=== PATIENT | male | born 1990 | race African-American/Black ===

== ENCOUNTER 2020-05-09 11:27 | Outpatient (REF) | payer OTHER, SELFPAY | END 2020-05-09 11:28 | disposition home or self-care (01) | LOC: HO.LAB 11:27 | PROVIDERS: Visit Provider Internal Medicine | DX: Z20.828 Contact with and (suspected) exposure to other viral communicable diseases (principal) | CPT/HCPCS: 87635 ==

== ENCOUNTER 2025-02-02 10:41 | Outpatient (REF) | payer OTHER, SELFPAY ==
--- NOTE | ~2025-02-02 | US_ITS ---
EXAMINATION: US ABDOMEN HISTORY: GERD TECHNIQUE: Real-time grayscale ultrasound imaging of the abdomen was performed and images were reviewed. COMPARISON: There are no prior studies available for comparison. FINDINGS: Liver: The right lobe of the liver measures 17.4 cm in size. The left lobe of the liver measures 10.7 cm in size. The liver demonstrates increased echotexture, consistent with steatosis. No focal mass or intrahepatic biliary ductal dilatation is identified. There is normal hepatopedal flow in the portal vein. Gallbladder and biliary tree: The gallbladder is unremarkable, without evidence of calculi, wall thickening, or pericholecystic fluid. There is no sonographic Khan sign. The common bile duct is normal in caliber measuring 4 mm. Kidneys: The right kidney measures 13.1 cm in length. The left kidney measures 11.8 cm in length. The kidneys are unremarkable, without evidence of masses, hydronephrosis, or calculi. Pancreas: The pancreatic head, neck, and body are unremarkable. The pancreatic tail is obscured by bowel gas. Spleen: The spleen is normal in size and contour, measuring 9.5 cm in length. Abdominal aorta and inferior vena cava: The visualized portions of the abdominal aorta and inferior vena cava are normal in caliber. There is no free fluid in the abdomen. US/US abdomen complete IMPRESSION: Mild hepatomegaly. Hepatic steatosis. Electronically signed by: Malick Chacon MD 02/02/2025 11:34 AM EDT
--- OUTSIDE RECORDS SUMMARY | 2025-02-02 11:19 | XMS_ITS | Clinical Summary ---
Author Organization [facility] Address [address] [place] [address] Care Team Providers Care Pipe Bending Machine Operator Name Role Phone Ace Scott MD Primary Care Provider [phone] Social History Tobacco Use Types Packs/Day Years [...] Vaccine (2023-2 5 season) 2024 Influenza Vaccine (#1) 2025 HIB Vaccines Aged Out No longer [...] and At-Risk Patients (6 to 49 Years) Aged Out No longer eligible b ased on patient's age to complete this topic RSV Immunization Patients Un kathryn 20 months Aged Out No longer eligible b ased on patient's age to complete this topic Varicella Vaccines Aged Out No longer eligible based on patient's age to complete this topic Care Teams Pipe Bending Machine Operator Relationship Specialty Start Date End Date Ace Scott MD [address] [place] [id number] PCP - General Internal Medicine 02/05/17
--- OUTSIDE RECORDS SUMMARY | 2025-02-02 11:19 | XMS_ITS | Clinical Summary ---
Author Organization [facility] Facility Address [address] [address] Care Team Providers Care Log Yard Derrick Operator Name Role Phone Mini Colin MD Primary Care Provider [phone] Allergies No known active allergies Medications No [...] of 2 - PCV) 2009 Influenza Vaccine (#1) 2025 Insurance [facility] Medicaid [facility] Medicaid Care Teams Log Yard Derrick Operator Relationship Specialty Start Date End Date Mini Colin MD [address] [place] [address] PCP - General Internal Medicine 11/14/20
--- OUTSIDE RECORDS SUMMARY | 2025-02-02 11:19 | XMS_ITS | Patient Health Record ---
Author Organization [facility] Address [address] [place] [address] Care Team Providers Care Lining Cleaner Name Role Phone Kitty Milan Primary Care Provider Unavailab Malick Hart Unavailable [phone] Allergies No Known Allergies Reason For Referral Referring Provider First Name Kitty Referring Provider Last Name Kayli Referring Provider Speciality Internal M edicine Referred Organization [facility] Referred Provider Malick Baldwin Referred Address [address],[place], [place],[address], Referred Provider Specialty Gastroentero logy General Notes Ivonne Hankins 2024 09:16:16 AM >requested referral from Dr. Lozano's office for visit with Dr. Baldwin on [phone], Ivonne Hankins 12/21/2024 01:45:52 PM >Has HPI [...] W/U Status Risk Notes Problem Epigastric pain (50011188) Epigastric pain (R10.13) Active confirmed Problem Constipation (K59.00) Active confirmed Problem Heartburn (79394317) Heartburn (R12) Active confirmed Problem Gastroesophageal reflux disease (996035800) GERD (gastroesophage al reflux disease) (K21.9) Active confirmed Vital Signs Temperature 98.6 degrees Fahrenheit 12/20/2024 Blood pressure diastolic 01 mm Hg 12/20/2024 Height 73 in 12/20/2024 Blood pressure systolic 001 mm Hg 12/20/2024 Weight 244 lbs 12/20/2024 BMI 32.19 kg/m2 12/20/2024 Procedures Procedure Date Ordered Date Performed Result Body Sit e UPPER GI ENDOSCOPY 12/20/2024 N/A Encounters Encounter Location Date Provider Diagnosis [facility] [address] [place] [address] 12/20/2024 Malick Baldwin GERD (gastroesophage al reflux [...] complete 12/20/2024 Next Appt Details Provider Name:Malick Baldwin , 02/26/2025 02:40:00 PM, [address] [place] [address] , [place], [place], [phone], Insurance Providers Payer Name Payer Address Payer Phone Subscriber Number Group Number Insured Name Patient Relationship to Insured Coverage Start Date Coverage End Date HEALTH PLANS [facility] [address] [place] [address] [id number] JOEL ROSS Self - patient is the insured Medical (General) History Medical History History ICD Code Denies ID,DM,CVA,Lung disease,renal dise ase Hospitalized in 2020 for abo ut 1 month for renal failure and seizures at [facility]. He describes a short course of dialysis. He reports this all resolved and has not been a medical issue for him since then. Surgical History Surgery Date(Month/Year) fatty tumor-- back of neck
== END 2025-02-02 10:42 | disposition home or self-care (01) ==
LOC: HO.US 10:41
PROVIDERS: PCP Internal Medicine; Visit Provider Internal Medicine
DX: K21.9 Gastro-esophageal reflux disease without esophagitis (principal); R10.13 Epigastric pain
CPT/HCPCS: 76700

== ENCOUNTER → 2025-02-02 11:08 | Outpatient (BNV) | payer OTHER, SELFPAY | PROVIDERS: PCP Internal Medicine; Visit Provider Radiology Diagnostic Radiology | DX: K76.0 Fatty (change of) liver, not elsewhere classified (principal) | CPT/HCPCS: 76700 ==

== ENCOUNTER 2025-02-26 13:28 | Day surgery (SDC) | payer OTHER, SELFPAY ==
--- OUTSIDE RECORDS SUMMARY | 2025-01-23 08:32 | XMS_ITS | Patient Health Record ---
Author Organization [facility] Address [address] [place] [address] Care Team Providers Care Sap Analyst Name Role Phone Kitty Milan Primary Care Provider Unavailab Malick Hart Unavailable [phone] Allergies No Known Allergies Reason For Referral Referring Provider First Name Kitty Referring Provider Last Name Kayli Referring Provider Speciality Internal M edicine Referred Organization [facility] Referred Provider Malick Baldwin Referred Address [address] [facility],[address],[place], [place],[address], Referred Provider Specialty Gastroentero logy General Notes Ivonne Hankins 2024 09:16:16 AM >requested referral from Dr. Lozano's office for visit with Dr. Baldwin on [phone], Ivonne Hankins 12/21/2024 01:45:52 PM >Has HPI insurance Referral Priority Routine Social History Tobacco Use: Social History Observation Description Date Details (start date - stop date) Current Smoker NA - NA Tobacco Control (Standard) Question Answer Notes Tobacco use: Current smoker AUDIT-C (Standard) Question Answer Notes Did you have a drink contain ing alcohol in the past year? Yes How often did you have a dri nk containing alcohol in the past year? Monthly or less (1 point) How many drinks did you have on a typical day when you were drinking in the past year? 1 or 2 drinks (0 point) How often did you have six o r more drinks on one occasion in the past year? Never (0 point) Points 1 Interpretation Negative Section Notes: Smokes cigs and marijuana, n o sig alcohol Problems Problem Type SNOMED Code ICD Code Onset Dates Problem Status W/U Status Risk Notes Problem Epigastric pain (94067138) Epigastric pain (R10.13) Active confirmed Problem Constipation (17037045) Constipation (K59.00) Active confirmed Problem Heartburn (14936308) Heartburn (R12) Active confirmed Problem GERD (gastroesophagea l reflux disease) (K21.9) Active confirmed Vital Signs Temperature 98.6 degrees Fahrenheit 12/20/2024 Blood pressure diastolic 01 mm Hg 12/20/2024 Height 73 in 12/20/2024 Blood pressure systolic 001 mm Hg 12/20/2024 Weight 244 lbs 12/20/2024 BMI 32.19 kg/m2 12/20/2024 Procedures Procedure Date Ordered Date Performed Result Body Sit e UPPER GI ENDOSCOPY 12/20/2024 N/A Encounters Encounter Location Date Provider Diagnosis [facility] [address] [place] [address] 12/20/2024 Malick Baldwin GERD (gastroesophage al reflux disease) K21.9 ; Heartburn R12 ; Epigastric pain R10.13 and Constipation K59.00 Assessments Encounter Date Diagnosis (ICD Code) Assessment Notes Treatment Notes Treatment Clinical Notes Section Notes 12/20/2024 Heartburn (ICD-10 - R12) CONTINUE THE DAILY MEDICATION AND IF IT ISN'T OMEPRAZOLE THEN LET ME KNOW WHAT IT IS. Overall, Joel appears well from a clinical standpoint. We did review his upper GI complaints seem most consistent with that of ongoing reflux. I advised him that would be important to exclude symptomatic gallstones as well due to the associated upper abdominal discomfort after meals. Given the chronic reflux despite what sounds like a daily PPI, I did recommend an upper endoscopy to rule out significant esophagitis, Tamez's esophagus, and/or a hiatal hernia. He will also have an abdominal ultrasound to check for any symptomatic gallstones. In the meantime, I did advise him to try to eat less at night, try to minimize caffeine, and to try to stop smoking. In regard to his constipation I did recommend a trial of some MiraLAX and to be sure to stay on a healthy and high-fiber diet with plenty of water. Full consent has been obtained for the endoscopy, including risks of bleeding and perforation. The procedure will be done with monitored anesthesia care. Joel was comfortable with this plan. Thank you again for allowing me to participate in Joel's care. I shall continue to keep you advised of his progress. 12/20/2024 GERD (gastroesophagea l reflux disease) (ICD-10 - K21.9) Overall, Joel appears well from a clinical standpoint. We did review his upper GI complaints seem most consistent with that of ongoing reflux. I advised him that would be important to exclude symptomatic gallstones as well due to the associated upper abdominal discomfort after meals. Given the chronic reflux despite what sounds like a daily PPI, I did recommend an upper endoscopy to rule out significant esophagitis, Tamez's esophagus, and/or a hiatal hernia. He will also have an abdominal ultrasound to check for any symptomatic gallstones. In the meantime, I did advise him to try to eat less at night, try to minimize caffeine, and to try to stop smoking. In regard to his constipation I did recommend a trial of some MiraLAX and to be sure to stay on a healthy and high-fiber diet with plenty of water. Full consent has been obtained for the endoscopy, including risks of bleeding and perforation. The procedure will be done with monitored anesthesia care. Joel was comfortable with this plan. Thank you again for allowing me to participate in Joel's care. I shall continue to keep you advised of his progress. 12/20/2024 Epigastric pain (ICD-10 - R10.13) Overall, Joel appears well from a clinical standpoint. We did review his upper GI complaints seem most consistent with that of ongoing reflux. I advised him that would be important to exclude symptomatic gallstones as well due to the associated upper abdominal discomfort after meals. Given the chronic reflux despite what sounds like a daily PPI, I did recommend an upper endoscopy to rule out significant esophagitis, Tamez's esophagus, and/or a hiatal hernia. He will also have an abdominal ultrasound to check for any symptomatic gallstones. In the meantime, I did advise him to try to eat less at night, try to minimize caffeine, and to try to stop smoking. In regard to his constipation I did recommend a trial of some MiraLAX and to be sure to stay on a healthy and high-fiber diet with plenty of water. Full consent has been obtained for the endoscopy, including risks of bleeding and perforation. The procedure will be done with monitored anesthesia care. Joel was comfortable with this plan. Thank you again for allowing me to participate in Joel's care. I shall continue to keep you advised of his progress. 12/20/2024 Constipation (ICD-10 - K59.00) Start some Miralax every day or so for the constipation. Eat a healthy diet with fruits, vegetables, and a lot of water. Overall, Joel appears well from a clinical standpoint. We did review his upper GI complaints seem most consistent with that of ongoing reflux. I advised him that would be important to exclude symptomatic gallstones as well due to the associated upper abdominal discomfort after meals. Given the chronic reflux despite what sounds like a daily PPI, I did recommend an upper endoscopy to rule out significant esophagitis, Tamez's esophagus, and/or a hiatal hernia. He will also have an abdominal ultrasound to check for any symptomatic gallstones. In the meantime, I did advise him to try to eat less at night, try to minimize caffeine, and to try to stop smoking. In regard to his constipation I did recommend a trial of some MiraLAX and to be sure to stay on a healthy and high-fiber diet with plenty of water. Full consent has been obtained for the endoscopy, including risks of bleeding and perforation. The procedure will be done with monitored anesthesia care. Joel was comfortable with this plan. Thank you again for allowing me to participate in Joel's care. I shall continue to keep you advised of his progress. Plan Of Treatment Pending Test Test Name Order Date UPPER GI ENDOSCOPY 12/20/2024 US abdomen complete 12/20/2024 Next Appt Details Provider Name:Malick Duran Denny , 02/26/2025 02:40:00 PM, [address] [place] [address] , [place], [place], [phone], Insurance Providers Payer Name Payer Address Payer Phone Subscriber Number Group Number Insured Name Patient Relationship to Insured Coverage Start Date Coverage End Date HE[employer] PLANS [facility] [address] [place] [address] [id number] JOEL ROSS Self - patient is the insured Medical (General) History Medical History History ICD Code Denies MS,DM,CVA,Lung disease,renal dise ase Hospitalized in 2020 for abo ut 1 month for renal failure and seizures at [facility]. He describes a short course of dialysis. He reports this all resolved and has not been a medical issue for him since then. Surgical History Surgery Date(Month/Year) fatty tumor-- back of neck
--- OUTSIDE RECORDS SUMMARY | 2025-01-23 08:32 | XMS_ITS | Clinical Summary ---
Author Organization [facility] Facility Address [address] [address] Care Team Providers Care Metallurgy Laboratory Technician Name Role Phone Mini Colin MD Primary Care Provider [phone] Allergies No known active allergies Medications No known medications Family History Medical History Relation Comments Diabetes Brother Hypertension Brother Diabetes Father Hypertension Father Hypertension Mother Relation Status Comments Brother Father Mother Social History Tobacco Use Types Packs/Day Years Used Date Smoking Tobacco: Every Day Cigarettes Smokeless Tobacco: Never Alcohol Use Standard Drinks/Week Comments Yes 0 (1 standard drink = 0.6 oz pur e alcohol) Sex and Gender Information Value Date Recorded Sex Assigned at Not on file Legal Sex Male 9:40 AM EDT Gender Identity Not on file Sexual Orientation Not on file Last Filed Vital Signs Vital Sign Reading Time Taken Comments Blood Pressure 130/80 08/07/2021 4:10 PM EST Pulse 89 08/07/2021 4:10 PM EST Temperature - - Respiratory Rate - - Oxygen Saturation - - Inhaled Oxygen Concentration - - Weight 102 kg (225 lb 12.8 oz) 08/07/2021 4:10 P M EST Height - - Body Mass Index - - Plan of Treatment Health Maintenance Due Date Last Done Comments Hepatitis B Vaccine (1 of 3 - 19+ 3-dose series) 04/08 Pneumococcal Vaccine: Peds ( 0 to 5 Years) and At-Risk Patients (6 to 49 Years) (1 of 2 - PCV) 2009 Influenza Vaccine (Season Ended) 2025 Insurance [facility] Medicaid [facility] Medicaid Care Teams Metallurgy Laboratory Technician Relationship Specialty Start Date End Date Mini Colin MD [address] [place] [address] PCP - General Internal Medicine 11/14/20
--- OUTSIDE RECORDS SUMMARY | 2025-01-23 08:32 | XMS_ITS | Clinical Summary ---
Author Organization [facility] Address [address] [place] [address] Care Team Providers Care Cardiovascular Surgeon Name Role Phone Ace Scott MD Primary Care Provider [phone] Social History Tobacco Use Types Packs/Day Years Used Date Smoking Tobacco: Never Assessed Sex and Gender Information Value Date Recorded Sex Assigned at Not on file Legal Sex Male 11:54 AM EST Gender Identity Not on file Sexual Orientation Not on file Plan of Treatment Health Maintenance Due Date Last Done Comments DTaP,Tdap,and Td Vaccines (1 - Tdap) 2009 Hepatitis B Vaccines (1 of 3 - 19+ 3-dose series) 2009 COVID-19 Vaccine (2023-2 5 season) 2024 Influenza Vaccine (Season Ended) 2025 HIB Vaccines Aged Out No longer eligi ble based on patient's age to complete this topic HPV Vaccines Aged Out No longer eligi ble based on patient's age to complete this topic Hepatitis A Vaccines Aged Out No long er eligible based on patient's age to complete this topic IPV Vaccines Aged Out No longer eligi ble based on patient's age to complete this topic MMR Vaccines Aged Out No longer eligi ble based on patient's age to complete this topic Meningococcal ACWY Vaccine Aged Out N o longer eligible based on patient's age to complete this topic Meningococcal B Vaccine Aged Out No l onger eligible based on patient's age to complete this topic Pneumococcal Vaccine: Pediat rics (0 to 5 Years) and At-Risk Patients (6 to 64 Years) Aged Out No longer eligible b ased on patient's age to complete this topic RSV Immunization Patients Un kathryn 20 months Aged Out No longer eligible b ased on patient's age to complete this topic Varicella Vaccines Aged Out No longer eligible based on patient's age to complete this topic Care Teams Cardiovascular Surgeon Relationship Specialty Start Date End Date Ace Scott MD [address] [place] [id number] PCP - General Internal Medicine 02/05/17
--- NOTE | 2025-02-23 08:51 | HO.ANESPROP2 ---
Documented by User: Shavonne Farris NP 02/23/25 08:57 HPI - Anesthesia Eval Consult details Narrative: 34yo M for Upper Endoscopy Recent [facility] ER with cocaine use - Utox DOS PMFSH Past Medical History Medical History Cocaine abuse Rhabdomyolysis Surgical History Surgical History H/O neck surgery Social History Social History Patient Tobacco Use Status: Current everyday Tobacco user Tobacco use type: Cigarette Cigarettes Per Day: 2 Use of substances other than those prescribed or required for medical reasons: Yes Are you DNR?: No Advance Directives: No Advance Directives Information Provided: Yes Poor oral hygiene: No Meds Allergies Allergy/AdvReac Type Severity Reaction Status Date / Time No Known Allergies Allergy Verified 02/23/25 08:57 Exam Pertinent Lab Results Pertinent Lab Results: CBC and CMP 10/2024 from [facility] [place] Narrative Narrative: EKG 10/2024 Ventricular Rate: 74 BPM Atrial Rate: 80 BPM P-R Interval: 164 ms QRS Duration: 92 ms Q-T Interval: 412 ms QTC Calculation(Bazett): 457 ms P Kenly: 46 degrees R Kenly: 29 degrees T Kenly: 51 degrees Sinus rhythm with marked sinus arrhythmia Otherwise normal ECG When compared with ECG of 20-Mar-2021 13:08, ST no longer elevated in Inferior leads Confirmed by CHARLY KELSEY ([id number]) on 11/16/2024 2:43:21 PM Assessment and Plan Assessment Anesthesia Assessment: Chart Reviewed Documented by User: Trudi Bui MD 02/26/25 14:58 PMFSH Past Medical History Medical History Cocaine abuse Rhabdomyolysis Family History Family history of problems with anesthesia: No Surgical History Surgical History H/O neck surgery History of Problems with Anesthesia: No Social History Social History Patient Tobacco Use Status: Current everyday Tobacco user Tobacco use type: Cigarette Cigarettes Per Day: 2 Use of substances other than those prescribed or required for medical reasons: Yes Are you DNR?: No Advance Directives: No Advance Directives Information Provided: Yes Poor oral hygiene: No Meds Allergies Allergy/AdvReac Type Severity Reaction Status Date / Time No Known Allergies Allergy Verified 02/23/25 08:57 Exam Airway Mallampati Class: III TM Dist: <=3cm Neck ROM: Full Heart: rrr Lungs: cta Assessment and Plan Assessment Anesthesia Assessment: Anesthesia Plan Discussed Final Anesthetic Review Family History of Problems with Anesthesia: No History of Problems with Anesthesia: No NPO: Yes ASA Class: III (positive utox) Final Preanesthetic Review: No Changes in Pt Med Stat, Meds/Allgs Chart Reviewed, Consent Obtained/Reviewed and Anes Risks/Benef Reviewed Patient Risk: Intermediate Procedure Risk: Low Anesthetic Plan Anesthetic Plan: MAC: Disposition: Standard PACU
[2025-02-26 13:39] VITALS: BMI 31.0
[2025-02-26 13:54] VITALS: BP 112/58; PULSE 70; RESP 16; TEMP 36.3; O2SAT 96
[2025-02-26 14:19] LABS: Cannabinoid Screen Urine POSITIVE (Not Detect)
[2025-02-26] MEDS: Lactated Ringers 1,000 ML 100 ML IVCONT (14:43)
--- NOTE | 2025-02-26 14:45 | PC.NURSE ---
MD GEOFF TURCIOS OF POSITIVE URINE WILEY AND HE SPOKE TO MD HODGE. OK TO PROCEED. I SPOKE TO PATIENT REGARDING THE RISKS BECAUSE OF HIS POSITIVE SCREENING.
[2025-02-26 15:46] VITALS: BP 116/80; PULSE 75; RESP 16; TEMP 36.4; O2SAT 96
--- NOTE | 2025-02-26 15:54 | P.BOP_ITS ---
Brief Operative Note Date of Service: 02/26/25 Pre-op diagnosis: GERD, Abdominal pain Post-op diagnosis: other (Gastritis) Procedure: EGD with biopsies Surgeon: Malick Baldwin MD Anesthesia: MAC Was an Dairy Equipment Specialist used for this Procedure?: No Estimated blood loss (mL): 2.0 Pathology: other (A. Gastric antrum B. EG Junction at 40cm) Condition: stable Disposition: PACU
[2025-02-26 16:01] VITALS: BP 110/60; PULSE 68; RESP 18; TEMP 36.4; O2SAT 97
[2025-02-26 16:16] VITALS: BP 104/60; PULSE 67; RESP 18; TEMP 36.4; O2SAT 97
[2025-02-26 16:26] LABS: INTERNATIONAL NORM RATIO 1.1 (0.9-1.1); Prothrombin Time 12.7 SEC (10.9-12.4)
[2025-02-26 16:31] LABS: Alanine Aminotransferase 20 U/L (0-40); Albumin Level 4.5 g/dL (3.5-5.0); Alkaline Phosphatase 98 U/L (39-117); Aspartate Amino Transferase 27 U/L (5-37); Total Protein 7.1 g/dL (6.5-8.0)
--- NOTE | 2025-02-27 01:58 | OP_ITS ---
DATE OF SERVICE: 02/26/2025 SURGEON: Malick Baldwin MD INDICATIONS: The patient presents for evaluation of abdominal discomfort and reflux. Full consent has been obtained from him for this, including risks of bleeding and perforation. PREOPERATIVE DIAGNOSIS: POSTOPERATIVE DIAGNOSIS: PROCEDURE PERFORMED: Esophagogastroduodenoscopy with biopsies. ESTIMATED BLOOD LOSS: COMPLICATIONS: ANESTHESIA: Medication used, monitored anesthesia care. ASSISTANTS: SPECIMENS: PREOPERATIVE DIAGNOSES: Abdominal discomfort and reflux. POSTOPERATIVE DIAGNOSES: Abdominal discomfort and reflux, mild gastritis. DESCRIPTION OF PROCEDURE: The patient was placed in the left lateral decubitus position. The Olympus video gastroscope was passed in the posterior oropharynx and upper esophagus under direct vision. The scope was passed slowly to the distal esophagus. The gastroesophageal junction appeared at 40 cm. There was a very slight irregularity and edema, but there was no evidence of any erosions nor esophagitis. There was no gross evidence of Tamez's esophagus. There was a minimal hiatal hernia. The scope was advanced to the pylorus and the duodenum was cannulated to the descending portion. The duodenum including the bulb appeared normal without mass or ulceration. The scope was withdrawn back into the stomach. The gastric antrum and body had areas of some erythema and edema with some pallor as well. There was no evidence of any erosions nor ulceration. There was good peristalsis. Biopsies were obtained from the prepyloric antrum. The scope was retroflexed visualizing the proximal stomach carefully which appeared normal, without any sign of mass or ulceration. The scope was straightened out and withdrawn back to the esophagus. Biopsies were obtained at the EG junction at 40 cm. Proximal to this, the esophageal mucosa appeared normal. The scope was withdrawn from the patient. He tolerated the procedure well and was returned to recovery area in stable condition. IMPRESSION: 1. Gastritis. 2. Minimal hiatal hernia with associated reflux. PLAN: The results of the biopsies will be checked. He has been advised to use his omeprazole just as needed. A recent abdominal ultrasound was negative for gallstones, although did show a fatty liver. He will be seen in followup in regard to his previous symptoms as well as the fatty liver. I shall check a liver profile as there has not been 1 done recently. MD KATERYNA Lobato/MARGIL / [id number] [facility]
== END 2025-02-26 16:21 | disposition home or self-care (01) ==
PROVIDERS: Nurse Practitioner; PCP Internal Medicine; Visit Provider Internal Medicine
PROC: 0DJ08ZZ Inspection of Upper Intestinal Tract, Via Natural or Artificial Opening Endoscopic (ICD-10-PCS; CPT 43235; principal; 2025-02-26 14:40)
DX: K29.70 Gastritis, unspecified, without bleeding (principal); K44.9 Diaphragmatic hernia without obstruction or gangrene; K21.9 Gastro-esophageal reflux disease without esophagitis; F12.90 Cannabis use, unspecified, uncomplicated; F14.10 Cocaine abuse, uncomplicated; F17.210 Nicotine dependence, cigarettes, uncomplicated
CPT/HCPCS: 43239; 36415; 80076; 80307; 85610; 88305; 88313; 88342; J2003; J2704; J3010